=== PATIENT | female | born 1945 | race African-American/Black ===

== ENCOUNTER 2017-08-11 14:42 | Emergency (ER) | payer MEDICARE, BC | END 2017-08-11 17:11 | disposition home or self-care (01) | LOC: D.ER 14:42 | DX: S29.8XXA Other specified injuries of thorax, initial encounter (principal); W01.0XXA Fall on same level from slipping, tripping and stumbling without subsequent striking against object, initial encounter; Y93.89 Activity, other specified; Y92.019 Unspecified place in single-family (private) house as the place of occurrence of the external cause ==

== ENCOUNTER 2019-06-05 13:17 | Emergency (ER) | payer MEDICARE, BC ==
[~2019-06-05] VITALS: Ht 165.1 cm; Wt 64.1 kg
[2019-06-05 13:21] VITALS: Ht 165.1 cm; Wt 64.1 kg
[2019-06-05] MEDS ORDERED: CARTIA XT120 MG PO (13:22)
[2019-06-05] MEDS ORDERED: XANAX1 MG PO (13:22)
[2019-06-05] MEDS ORDERED: HYDROCODON-ACE1 EAC7 PO (13:22)
[2019-06-05] MEDS ORDERED: CATAPRES0.1 MG PO (13:22)
[2019-06-05 14:23] LABS: BASOPHILS 0.3 % (0-2); EOSINOPHILS 1.6 % (0-7); HEMATOCRIT 38.6 % (36.0-48.0); HEMOGLOBIN 13.2 g/dL (12-16); IMMATURE GRANULOCYTES 0.3 % (0-5); LYMPHOCYTES 10.6 % (15-50); MCH 32.4 pg (26.0-34.0); MCHC 34.2 g/dL (31.0-37.0); MCV 94.6 fL (80.0-100.0); MEAN PLATELET VOLUME 9.7 fL (7.4-10.4); MONOCYTES 1.6 % (2-11); NEUTROPHILS 85.6 % (40-80); RBC 4.08 10x6/uL (4.00-5.40); RDW 13.1 % (11.5-14.5); WBC 6.8 10x3/uL (4.8-10.8)
[2019-06-05 14:26] LABS: PLATELET COUNT 203 10x3/uL (130-400)
[2019-06-05 14:33] LABS: INR 1.21 (0.85-1.17); PROTIME 14.8 SECONDS (11.6-15.0)
[2019-06-05 14:39] LABS: ALBUMIN 3.7 g/dL (3.4-5.0); ANION GAP 12.5 mmol/L (8-16); BILIRUBIN - TOTAL 0.66 mg/dL (0.2-1.3); CALCIUM 8.7 mg/dL (8.5-10.1); CARBON DIOXIDE 30.4 mmol/L (21.0-32.0); CREATININE - SERUM 0.8 mg/dL (0.6-1.3); POTASSIUM - SERUM 3.9 mmol/L (3.5-5.1); PROTEIN - SERUM 7.4 g/dL (6.4-8.2)
[2019-06-05] MEDS ORDERED: NAPROSYN500 MG PO (16:14)
[2019-06-05 16:32] VITALS: BP 160/80
== END 2019-06-05 16:34 | disposition home or self-care (01) ==
LOC: D.ER 13:17
PROVIDERS: Family Medicine
DX: S00.83XA Contusion of other part of head, initial encounter (principal); V43.52XA Car driver injured in collision with other type car in traffic accident, initial encounter; I10 Essential (primary) hypertension; I48.91 Unspecified atrial fibrillation; J44.9 Chronic obstructive pulmonary disease, unspecified